=== PATIENT | female | born 1975 ===

== ENCOUNTER 2016-08-17 14:13 | Outpatient (RCR) | payer BC ==
[~2016-08-17] VITALS: Ht 165.1 cm; Wt 57.6 kg
== END 2016-09-05 | disposition home or self-care (01) ==
LOC: WCC 14:13
DX: T22.212A Burn of second degree of left forearm, initial encounter (principal); X58.XXXA Exposure to other specified factors, initial encounter; Y93.9 Activity, unspecified; Y92.9 Unspecified place or not applicable